=== PATIENT | female | born 1980 | race Caucasian/White ===

== ENCOUNTER 2017-12-06 20:06 | Inpatient (IN) | payer BC ==
[~2017-12-06] VITALS: Ht 167.6 cm; Wt 83.1 kg
[~2017-12-06 20:06] MED LIST: FERR325T51 PO; MTR600X PO; PRENTAB26 PO
[2017-12-06] MEDS ORDERED: KETOROLAC TROMETHAMINE 30 MG/ML VIAL IV STA (20:28)
[2017-12-06] MEDS ORDERED: OPTIRAY 320 IV PRN (20:45)
[2017-12-06 21:01] LABS: HEMATOCRIT 38.8 % (37-47); HEMOGLOBIN 13.2 g/dL (12.0-16.0); MEAN CELL VOLUME 88.8 fL (80-100); MEAN CORPUSCULAR HEMOGLOBIN 30.2 pg (25-34); MEAN PLATELET VOLUME 9.4 fL (7.4-10.4); PLATELET COUNT 242 K/uL (130-400); RED CELL DISTRIBUTION WIDTH SD 42.2 fL (36.4-46.3); WHITE BLOOD COUNT 8.03 K/uL (4.8-10.8)
[2017-12-06 21:18] LABS: CALCIUM 9.1 mg/dl (8.5-10.1); CREATININE 0.84 mg/dl (0.60-1.20); POTASSIUM 3.8 mmol/L (3.5-5.1)
--- NOTE | 2017-12-06 22:13 | DIAGNOSTIC IMAGING REPORT ---
CT ANGIOGRAM OF THE BRAIN COMBO; CT ANGIOGRAM OF THE NECK CLINICAL HISTORY: Headache. COMPARISON STUDY: No priors. TECHNIQUE: Unenhanced axial CT scan of the brain is performed. Subsequently, following the IV administration of 94 of Optiray 320, CT angiogram of the head and neck was performed from the aortic arch to the vertex. Images are reviewed in the axial, sagittal, and coronal planes. 3-D MIPS images are created and assessed. IV contrast was administered without complication. All measurements were calculated based on NASCET criteria. A dose lowering technique was utilized adhering to the principles of ALARA. CT DOSE: 1072.78 mGy.cm FINDINGS: Brain parenchyma: The brain parenchyma is normal in appearance. There is no hemorrhage, mass effect, or evidence of acute territorial ischemia by CT criteria. There is no evidence of enhancing mass lesion on the angiogram phase images. The ventricles, sulci, and cisterns are normal in configuration. Lane-white matter differentiation is preserved. No extra-axial fluid collection is seen. Thoracic aorta: Visualized portions of the thoracic aorta are normal in caliber. The aortic arch demonstrates standard 3-vessel anatomy. Right carotid arterial system: The right common carotid artery is widely patent, as are the right internal and external carotid arteries. Left carotid arterial system: The left common carotid artery is widely patent, as are the left internal and external carotid arteries. Vertebral arteries: The vertebral arteries are patent bilaterally and codominant. There is a focal dissection identified in the right vertebral artery in the neck at the level of C4-C5. This is best seen on axial image #126. Focal dissection is also identified in the mid to distal left vertebral artery in the neck at the level of C3-C4. This is best seen on axial image #142. Subclavian arteries: Widely patent bilaterally. Intracranial vasculature: There is origin of the left posterior cerebral artery. There is a large right posterior communicating artery. The internal carotid arteries are patent at the skull base, as are the anterior and middle cerebral arteries bilaterally. The vertebrobasilar system and posterior cerebral arteries are widely patent. The vertebral arteries are codominant. There is no aneurysm, high-grade stenosis, or focal vessel cut off seen throughout the intracranial circulation. Jugular veins: Widely patent bilaterally. Dural sinuses: Patent. Lung apices: Partially visualized upper lobe lung parenchyma appears clear. Soft tissues: The visualized pharyngeal soft tissues are normal in appearance noting angiographic phase technique. The oropharyngeal airway appears widely patent. The salivary and thyroid glands are normal in appearance. No cervical lymphadenopathy is seen. Skeletal structures: The calvarium appears intact. The cervical spine is within normal limits. Sinuses and mastoids: Trace mucosal thickening is seen in the maxillary antra. The remaining paranasal sinuses are clear. The mastoid air cells are well pneumatized. IMPRESSION: 1. There is no hemorrhage, mass effect, or evidence of acute territorial ischemia by CT criteria. 2. Unremarkable CT angiogram of the brain. 3. There are focal dissections identified within both vertebral arteries in the neck as above. The vessels remain patent. 4. The carotid arteries are widely patent bilaterally. Electronically signed by: Bud Fried M.D. 12/06/2017 10:12 PM Dictated Date/Time: 12/06/2017 10:00 PM
[2017-12-07 00:04] LABS: INR 0.9 (0.9-1.1); PTT PATIENT 28.9 SECONDS (21.0-31.0)
[2017-12-07] MEDS ORDERED: HEPARIN 25000 UNIT/500 ML D5W ONE (00:10)
[2017-12-07 00:50] VITALS: BP 149/96; PULSE 72; TEMP 36.7; O2SAT 96; Ht 167.6 cm; Wt 83.1 kg
[2017-12-07] MEDS ORDERED: MoRPHine SULFATE 4 MG/ML 1 ML CARP\\VIAL IV PRN (01:15)
[2017-12-07] MEDS ORDERED: TRAMADOL HCL 50 MG TAB PO PRN (01:15)
[2017-12-07] MEDS ORDERED: PROCHLORPERAZINE INJ 5 MG in SYRINGE 4 ML IV PRN (01:15)
[2017-12-07] MEDS ORDERED: LORAZEPAM 2 MG/ML 1 ML VIAL IV PRN (01:15)
[2017-12-07] MEDS ORDERED: HEPARIN 25,000 UNIT/500ML D5W 500 ML IV PRN (01:30)
[2017-12-07] MEDS ORDERED: HEPARIN IV BOLUS 6,000 UNIT in SYRINGE 0 ML IV ONE (01:30)
[2017-12-07 02:32] LABS: ALBUMIN 3.9 gm/dl (3.4-5.0); ALKALINE PHOSPHATASE 68 U/L (45-117); ALT/SGPT 27 U/L (12-78); AST/SGOT 20 U/L (15-37); TOTAL PROTEIN 8.2 gm/dl (6.4-8.2)
--- NOTE | 2017-12-07 02:50 | EMERGENCY ROOM VISIT NOTE ---
History Report prepared by Roel: Tu Khanna Under the Supervision of: Dr. Moreno Hogue D.O. First contact with patient: 20:21 Chief Complaint: HYPERTENSION Stated Complaint: NECK PAIN, HEADACHE, HPB History of Present Illness The patient is a 37 year old female who presents to the Emergency Room with complaints of constant neck pain and a headache beginning 3.5 hours ago. The patient states she developed left sided neck pain and then a headache. She reports her discomfort did not feel like muscle pain. The patient notes she went to [employer] [facility] and was told her blood pressure was high. She states her baseline blood pressure is low. The patient reports she has been having intermittent flu like symptoms and nausea for the past two weeks. She notes she tried Sudafed and Mucinex, but they have not helped. The patient denies smoking and taking daily medication. She notes she had an IUD placed and her menstrual period has been irregular. Source of History: patient Onset: 3.5 hours ago Position: head, neck (left sided) Quality: ache (head) Timing: constant Associated Symptoms: + nausea (intermittent for the past two weeks) Note: Associated symptoms: HTN, intermittent flu like symptoms for a week Denies: smoking Review of Systems See HPI for pertinent positives & negatives. A total of 10 systems reviewed and were otherwise negative. Past Medical & Surgical Medical Problems: (1) Uterine contractions at greater than 20 weeks of gestation (2) Uterine contractions at greater than 20 weeks of gestation (3) Vertebral artery dissection Family History Cancer Diabetes mellitus Heart disease Hypertension Social History Smoking Status: Never Smoker Smokeless Tobacco Use: No Alcohol Use: occasionally Marital Status: Housing Status: lives with family Occupation Status: employed Current/Historical Medications No Active Prescriptions or Reported Meds Allergies Coded Allergies: No Known Allergies (Unverified , 10/29/15) Physical Exam Vital Signs Date Time Temp Pulse Resp B/P (MAP) Pulse Ox O2 Delivery O2 Flow Rate FiO2 12/06/17 23:59 82 20 159/96 98 Room Air 12/06/17 21:42 72 20 132/90 98 Room Air 12/06/17 20:55 72 18 155/104 100 Room Air 12/06/17 20:08 36.5 83 16 179/107 99 Room Air Physical Exam CONSTITUTIONAL/VITAL SIGNS: Reviewed / noted above. GENERAL: Non-toxic in appearance. INTEGUMENTARY: Warm, dry, and [place]. HEAD: Normocephalic. EYES: without scleral icterus or trauma. ENT/OROPHARYNX: clear and moist. LYMPHADENOPATHY/NECK: Is supple without lymphadenopathy or meningismus. RESPIRATORY: Lungs clear and equal. CARDIOVASCULAR: Regular rate and rhythm. GI/ABDOMEN: Soft and nontender. No organomegaly or pulsatile mass. No rebound or guarding. Normal bowel sounds. EXTREMITIES: Warm and well perfused. BACK: No CVA tenderness. NEUROLOGICAL: Intact without focal deficits. PSYCHIATRIC: normal affect. MUSCULOSKELETAL: Normally developed with good muscle tone. Medical Decision & Procedures ER Provider Diagnostic Interpretation: CT results as stated below per my review and radiologist interpretation: CT ANGIOGRAM OF THE BRAIN COMBO; CT ANGIOGRAM OF THE NECK CLINICAL HISTORY: Headache. COMPARISON STUDY: No priors. TECHNIQUE: Unenhanced axial CT scan of the brain is performed. Subsequently, following the IV administration of 94 of Optiray 320, CT angiogram of the head and neck was performed from the aortic arch to the vertex. Images are reviewed in the axial, sagittal, and coronal planes. 3-D MIPS images are created and assessed. IV contrast was administered without complication. All measurements were calculated based on NASCET criteria. A dose lowering technique was utilized adhering to the principles of ALARA. CT DOSE: 1072.78 mGy.cm FINDINGS: Brain parenchyma: The brain parenchyma is normal in appearance. There is no hemorrhage, mass effect, or evidence of acute territorial ischemia by CT criteria. There is no evidence of enhancing mass lesion on the angiogram phase images. The ventricles, sulci, and cisterns are normal in configuration. Lane-white matter differentiation is preserved. No extra-axial fluid collection is seen. Thoracic aorta: Visualized portions of the thoracic aorta are normal in caliber. The aortic arch demonstrates standard 3-vessel anatomy. Right carotid arterial system: The right common carotid artery is widely patent, as are the right internal and external carotid arteries. Left carotid arterial system: The left common carotid artery is widely patent, as are the left internal and external carotid arteries. Vertebral arteries: The vertebral arteries are patent bilaterally and codominant. There is a focal dissection identified in the right vertebral artery in the neck at the level of C4-C5. This is best seen on axial image #126. Focal dissection is also identified in the mid to distal left vertebral artery in the neck at the level of C3-C4. This is best seen on axial image #142. Subclavian arteries: Widely patent bilaterally. Intracranial vasculature: There is origin of the left posterior cerebral artery. There is a large right posterior communicating artery. The internal carotid arteries are patent at the skull base, as are the anterior and middle cerebral arteries bilaterally. The vertebrobasilar system and posterior cerebral arteries are widely patent. The vertebral arteries are codominant. There is no aneurysm, high-grade stenosis, or focal vessel cut off seen throughout the intracranial circulation. Jugular veins: Widely patent bilaterally. Dural sinuses: Patent. Lung apices: Partially visualized upper lobe lung parenchyma appears clear. Soft tissues: The visualized pharyngeal soft tissues are normal in appearance noting angiographic phase technique. The oropharyngeal airway appears widely patent. The salivary and thyroid glands are normal in appearance. No cervical lymphadenopathy is seen. Skeletal structures: The calvarium appears intact. The cervical spine is within normal limits. Sinuses and mastoids: Trace mucosal thickening is seen in the maxillary antra. The remaining paranasal sinuses are clear. The mastoid air cells are well pneumatized. IMPRESSION: 1. There is no hemorrhage, mass effect, or evidence of acute territorial ischemia by CT criteria. 2. Unremarkable CT angiogram of the brain. 3. There are focal dissections identified within both vertebral arteries in the neck as above. The vessels remain patent. 4. The carotid arteries are widely patent bilaterally. Electronically signed by: Bud Fried M.D. 12/06/2017 10:12 PM Dictated Date/Time: 12/06/2017 10:00 PM Laboratory Results 12/06/17 20:45 12/06/17 20:45 Test 12/06/17 20:45 Red Blood Count 4.37 M/uL (4.2-5.4) Mean Corpuscular Volume 88.8 fL (80-100) Mean Corpuscular Hemoglobin 30.2 pg (25-34) Mean Corpuscular Hemoglobin Concent 34.0 g/dl (32-36) RDW Standard Deviation 42.2 fL (36.4-46.3) RDW Coefficient of Variation 13.0 % (11.5-14.5) Mean Platelet Volume 9.4 fL (7.4-10.4) Prothrombin Time 9.7 SECONDS (9.0-12.0) Prothromb Time International Ratio 0.9 (0.9-1.1) Activated Partial Thromboplast Time 28.9 SECONDS (21.0-31.0) Partial Thromboplastin Ratio 1.1 Anion Gap 4.0 mmol/L (3-11) Est Creatinine Clear Calc Drug Dose 100.4 ml/min Estimated GFR () 102.9 Estimated GFR (Non- 88.8 BUN/Creatinine Ratio 14.7 (10-20) Calcium Level 9.1 mg/dl (8.5-10.1) Magnesium Level 2.5 mg/dl (1.8-2.4) Total Bilirubin 0.8 mg/dl (0.2-1) Direct Bilirubin < 0.1 mg/dl (0-0.2) Aspartate Amino Transf (AST/SGOT) 20 U/L (15-37) Alanine Aminotransferase (ALT/SGPT) 27 U/L (12-78) Alkaline Phosphatase 68 U/L (45-117) Total Protein 8.2 gm/dl (6.4-8.2) Albumin 3.9 gm/dl (3.4-5.0) Thyroid Stimulating Hormone (TSH) 1.680 uIu/ml (0.300-4.500) Laboratory results as stated above per my review. Medications Administered Medications (Trade) Dose Ordered Sig/Chris Route Start Time Stop Time Status Last Admin Dose Admin Ketorolac Tromethamine (Toradol Inj) 30 mg NOW STAT IV 12/06/17 20:28 12/06/17 20:31 DC 12/06/17 20:56 30 MG ED Course 2020: Previous medical records were reviewed. The patient was evaluated in room B04B. A complete history and physical examination was performed. 2027: Ordered Ketorolac Tromethamine 30 mg IV 2330: I discussed the patient's case with Dr. Olsen, Neurology. He said admit the patient to medicine, put her on a Heparin drip overnight, and have her get an MRI of the brain. 4: On reevaluation, the patient is resting comfortably. I discussed the results and findings with the patient. She verbalized agreement of the treatment plan. The patient will be evaluated for further management and care. 2341: I discussed the patient's case with Dr. Little, [facility] [address] Hospitalist. The patient will be evaluated for further management and care. 2343: Ordered Heparin Sodium/Dextrose 1 ea Medical Decision Differential includes: Acute intracranial bleed, trauma, meningitis, encephalitis, increased intracranial pressure, mass or mass effect, facial or dental infection, temporal arteritis, CVA, TIA, acute hypertensive emergency, sinusitis, and carbon monoxide exposure. This is a 37-year-old female who presents to the ED with a chief complaint of a headache and hypertension. The patient states that her symptoms started around 5 PM tonight. She developed a posterior headache and some left-sided posterior neck pain. She states that the neck pain is becoming more generalized in the posterior neck and a headache is mostly in the posterior but became generalized as well. She states that she has had a head cold for about a month. She also recently got over a GI bug. She denies any chest pains, shortness of breath, abdominal pains. She does not have a fever. Physical exam was unremarkable. His no lymphadenopathy. No photophobia. No localized tenderness in the musculature of the posterior neck. CBC and PRP are normal. A CT scan angiogram reveals bilateral of the head and neck revealed bilateral vertebral artery dissections. I spoke with Dr. Olsen about this patient. He recommends the patient be admitted and placed on IV heparin and worked up additionally with MRI. The patient was reassessed. Her blood pressure did improve during her ED stay. She was given IV Toradol for pain and IV fluids. The patient was reassessed and told the results. She is comfortable. Her blood pressure was around 145 systolic. She will be seen by the hospitalist for further inpatient evaluation and care. She was ordered IV heparin. Consults Time Called: [phone] Consulting Physician: Dr. Olsen, Neurology Returned Call: [phone] I discussed the patient's case with Dr. Olsen, Neurology. He said admit the patient to medicine, put her on a Heparin drip overnight, and have her get an MRI of the brain. Additional Consults: Time Called: [phone] Consulted Physician: Cm Hector Hospitalist Returned Call: [phone] Additional Comments: I discussed the patient's case with Cm Hector Hospitalist. The patient will be evaluated for further management and care. Impression Primary Impression: Vertebral artery dissection Scribe Attestation The scribe's documentation has been prepared under my direction and personally reviewed by me in its entirety. I confirm that the note above accurately reflects all work, treatment, procedures, and medical decision making performed by me. Departure Information Dispostion Being Evaluated By Hospitalist Prescriptions No Active Prescriptions or Reported Meds Referrals Adán Chaves D.O. (PCP) Patient Instructions My [facility]
[2017-12-07] MEDS ORDERED: GADAVIST IV PRN (03:00)
[2017-12-07] MEDS ORDERED: NSS + 20MEQ KCL 1000ML 1,000 ML IV ONE (03:30)
[2017-12-07] MEDS ORDERED: NITROGLYCERIN 0.4 MG SL PER TAB CHARGE SL PRN (03:30)
[2017-12-07] MEDS ORDERED: ACETAMINOPHEN 325 MG TAB PO PRN (03:30)
[2017-12-07] MEDS ORDERED: KETOROLAC TROMETHAMINE 15 MG/ML VIAL ONE (03:46)
[2017-12-07 03:47] VITALS: BP 143/87; PULSE 67; TEMP 36.9; O2SAT 96
[2017-12-07] MEDS ORDERED: KETOROLAC TROMETHAMINE 15 MG/ML VIAL IV. STA (03:48)
[2017-12-07 04:00] VITALS: O2SAT 96
--- NOTE | 2017-12-07 04:29 | HISTORY & PHYSICAL EXAMINATION ---
DATE OF ADMISSION: 12/07/2017 PRIMARY CARE PHYSICIAN: Adán Chaves DO. CHIEF COMPLAINT: Headache. HISTORY OF PRESENT ILLNESS: History obtained from patient and records. No significant medical history. Patient was driving yesterday when she noted achy left neck, left headache symptoms. Her handwriting was a little sloppy yesterday. No chest pain, no shortness of breath. Vision in both eyes were little blurry as per patient. Patient does not recall trauma. Some of pain relief w/ massaging sore neck spot. Patient seen at urgent care center. Emergency Room evaluation recommended. CT angio of the brain did not show any hemorrhage, mass effect. Focal dissections identified in both vertebral arteries. IV heparin started in the ER as per Neurology recommendations. MEDICAL HISTORY: As above. SURGERIES: Dental surgery, D&C, denies any other gynecological procedures. HOME MEDICATIONS: None. ALLERGIES: No known drug allergies. FAMILY HISTORY: Diabetes, heart disease, thyroid problems. PERSONAL AND SOCIAL HISTORY: Nonsmoker, no chronic intake of alcoholic beverages. She is a schoolteacher. REVIEW OF SYSTEMS: As per HPI. All 10 systems reviewed. All other ROS negative. PHYSICAL EXAMINATION: VITAL SIGNS: Blood pressure noted to be 130/90, pulse rate 72, RR 20, temperature 36.7, sats 98 on room air. GENERAL: Noted to be pleasant, no respiratory distress. SKIN: Normal color. Warm. HEENT: [place] palpebral conjunctiva. Eye balls somewhat protuberant (chronic) Moist buccal mucosa. NECK: Supple. No tenderness. CHEST: CTA. No tenderness. HEART: Regular rate and rhythm, no murmur. ABDOMEN: Soft, nontender. EXTREMITIES: No edema, no tenderness. No gross deformities NEUROLOGIC: Coherent. No gross focality. LABORATORY DATA: Hemoglobin was noted to be 13.2, hematocrit 38, white cell count 8.8, platelets 242. Sodium noted to be 135, potassium 3.8, chloride 102, CO2 29, BUN 12, creatinine 0.8, glucose noted to be 97. CTA as above. ASSESSMENT: Cervical (vertrebral) artery dissection PLAN: PCU IV heparin, MRI of brain as per Neurology recommendations. Further management as per Neurology. (ER provider already in touch with Dr. Olsen.) DVT prophylaxis, Heparin. Full code. MTDD
[2017-12-07 06:19] LABS: BASO % 0.3 %; BASO ABS # 0.03 K/uL (0-0.2); EOS % 3.1 %; EOS ABS # 0.29 K/uL (0-0.5); HEMATOCRIT 35.8 % (37-47); HEMOGLOBIN 12.1 g/dL (12.0-16.0); IG# 0.02 K/uL (0.00-0.02); LYMPH % 30.4 %; LYMPH ABS # 2.85 K/uL (1.2-3.4); MEAN CELL VOLUME 88.8 fL (80-100); MEAN CORPUSCULAR HGB CONC 33.8 g/dl (32-36); MEAN PLATELET VOLUME 9.4 fL (7.4-10.4); MONO % 7.5 %; NEUT % 58.5 %; NEUT ABS # 5.49 K/uL (1.4-6.5); PLATELET COUNT 228 K/uL (130-400); RED CELL DISTRIBUTION WIDTH SD 41.8 fL (36.4-46.3); WHITE BLOOD COUNT 9.38 K/uL (4.8-10.8)
[2017-12-07 06:20] LABS: PTT PATIENT 41.3 SECONDS (21.0-31.0)
[2017-12-07] MEDS ORDERED: HEPARIN IV BOLUS 3,000 UNIT in SYRINGE 0 ML IV ONE (06:45)
[2017-12-07 06:50] LABS: CALCIUM 8.6 mg/dl (8.5-10.1); CREATININE 0.58 mg/dl (0.60-1.20)
--- NOTE | 2017-12-07 07:19 | DIAGNOSTIC IMAGING REPORT ---
Brain MRI WITH AND WITHOUT CONTRAST HISTORY: headache TECHNIQUE: Multiplanar multisequence MRI of the brain was performed both before and after the intravenous administration of contrast. COMPARISON STUDY: None. FINDINGS: There are no areas of restricted diffusion to suggest acute infarction. The midline structures are intact. The paranasal sinuses are clear. The mastoid air cells are clear. The ventricles and sulci are within normal limits for age. There is no mass, hematoma, midline shift. The major vascular flow-voids at the skull base are well maintained. Postcontrast sequences show no areas of abnormal enhancement. There are few punctate foci of T2 hyperintensity within the subcortical white matter of the supratentorial brain. IMPRESSION: No acute intracranial abnormality. A few punctate nonspecific T2 hyperintense foci within the subcortical white matter of the supratentorial brain. This is nonspecific could be due to migraines. Electronically signed by: Pardeep Hall M.D. 12/07/2017 7:17 AM Dictated Date/Time: 12/07/2017 7:09 AM
[2017-12-07 07:42] VITALS: BP 143/89; PULSE 69; TEMP 36.9; O2SAT 97
--- NOTE | 2017-12-07 09:08 | Neurology Consultation ---
Neurology Consultation Date of Consultation: Dec 07, 2017. Attending Physician: Fallon Salazar M.D. Primary Care Physician: Adán Chaves D.O. Reason for Consultation: Vertebral artery dissection History of Present Illness Source: patient, hospital records The patient is a 37-year-old female who presented with a complaint of neck pain and headache that began suddenly while driving her car yesterday. The neck pain was primarily left-sided and did not radiate into the limbs. [facility] and found to have an elevated blood pressure. She presented to the hospital for further assessment. She had been complaining of a recent mild flulike illness for the proceeding one to 2 weeks with perhaps some minimal coughing. No vomiting or retching. The patient reports that her neck pain and headache have resolved. She denies experiencing any vision loss, diplopia, change in speech, weakness, or sensory loss in the limbs. This patient 's past medical history is generally unremarkable. No known history of connective tissue disease, fibromuscular dysplasia, previous arterial dissection , or aneurysm. She has not had any chiropractic manipulation. She denies any significant head or neck trauma in the previous [address] of the head completed at the time of presentation was unremarkable. No evidence of hemorrhage. CT angiography of the head and neck was also completed. I reviewed the images as well as the radiologist's interpretation of this test. There is a focal dissection of the right vertebral artery at the C4-5 level. There is a focal dissection of the mid left vertebral artery at the C3-4 level. No other vascular abnormalities appreciated. I discussed this patient's case with both the emergency department attending as well as the admitting physician last night. Her blood pressure is modestly elevated but seems to be improving. A heparin drip has been started. A brain MRI has been completed as well. I reviewed the images as well as radiologist's interpretation of this test. No significant abnormalities. No evidence of acute or subacute infarct. No evidence of hemorrhage. Family History Patient denies a family history of arterial dissection, fibromuscular dysplasia , or connective tissue disease in any immediate family member. Social History Smoking Status: Never smoker Smokeless Tobacco Use: No Marital Status: Housing Status: lives with family Occupation Status: employed Allergies Coded Allergies: No Known Allergies (Unverified , 10/29/15) Current Inpatient Medications Current Inpatient Medications Medications (Trade) Dose Ordered Sig/Chris Route Start Time Stop Time Status Last Admin Dose Admin Ioversol (Optiray 320) 100 ml UD PRN IV 12/06/17 20:45 12/10/17 20:44 Prochlorperazine Edisylate 5 mg/ Syringe 5 ml @ 5 mls/min Q6H PRN IV 12/07/17 01:15 01/06/18 01:14 Tramadol HCl (Ultram Tab) 25 mg Q6H PRN PO 12/07/17 01:15 01/06/18 01:14 Morphine Sulfate (MoRPHine SULFATE INJ) 4 mg Q3H PRN IV 12/07/17 01:15 12/21/17 01:14 Lorazepam (Ativan Inj) 0.5 mg Q4H PRN IV 12/07/17 01:15 01/06/18 01:14 Heparin Sodium/ Dextrose 500 ml @ 28 mls/hr [id number] PRN IV 12/07/17 01:30 01/06/18 01:29 12/07/17 07:15 28 MLS/HR Acetaminophen (Tylenol Tab) 650 mg Q4H PRN PO 12/07/17 03:30 01/06/18 03:29 Nitroglycerin (Nitrostat Tab) 0.4 mg UD PRN SL 12/07/17 03:30 01/06/18 03:29 Potassium Chloride/Sodium Chloride 1,000 ml @ 75 mls/hr [id number] ONCE IV 12/07/17 03:30 12/07/17 16:49 12/07/17 03:55 75 MLS/HR Gadobutrol (Gadavist) 8.4 mmol UD PRN IV 12/07/17 03:00 12/11/17 02:59 Review of Systems Constitutional: No fever or chills Eyes: No vision loss or diplopia ENT: No vertigo or hearing loss Cardiovascular: No chest pain or palpitations Respiratory: No coughing wheezing or shortness of breath Gastrointestinal: No nausea or vomiting or diarrhea Neurological: As per history of present illness A full 10 point review of systems was obtained from this patient with pertinent positives and negatives as described in the history and otherwise listed above. All remaining systems reviewed and are negative. Physical Exam Vital Signs (Past 24 Hrs): Date Time Temp Pulse Resp B/P (MAP) Pulse Ox O2 Delivery O2 Flow Rate FiO2 12/07/17 07:42 36.9 69 18 143/89 (107) 97 Room Air 12/07/17 04:00 96 Room Air 12/07/17 03:47 36.9 67 17 143/87 (105) 96 Room Air 12/07/17 00:50 36.7 72 22 149/96 96 Room Air 12/07/17 00:37 73 20 145/101 98 Room Air 12/07/17 00:02 80 12/06/17 23:59 82 20 159/96 98 Room Air 12/06/17 21:42 72 20 132/90 98 Room Air 12/06/17 20:55 72 18 155/104 100 Room Air 12/06/17 20:08 36.5 83 16 179/107 99 Room Air The patient is a well-developed, well-nourished middle-aged female. She is sitting up comfortably in bed. The patient is alert and fully oriented. Recent and remote memory intact. Attention and concentration normal. Patient exhibits a normal spontaneous speech pattern as well as an age-appropriate fund of knowledge. Visual champagne full to confrontation. Visual acuity normal. Pupils equal round reactive to light and accommodation. Eye movements normal. Facial sensation intact. There is no facial droop or facial weakness. Hearing intact bilaterally. Palate elevates to midline. Shoulder shrug strength intact bilaterally. Tongue protrudes to midline. Sensation intact to light touch, temperature, vibration, and proprioception in all 4 limbs. Deep tendon reflexes are intact and symmetrical for the arms and legs bilaterally. Plantar responses downgoing bilaterally. There is no dysdiadochokinesia or dysmetria with finger to nose or heel to paredes bilaterally. Ophthalmoscopic examination reveals normal- appearing optic nerves and posterior elements. No papilledema or hemorrhages. Carotid pulses normal to auscultation bilaterally. Gait and station normal. Muscle strength and tone normal for the arms and legs bilaterally. No atrophy. No abnormal movements observed. Laboratory Results Past 24 Hours: 12/07/17 06:00 Red Blood Count 4.03, Mean Corpuscular Volume 88.8, Mean Corpuscular Hemoglobin 30.0, Mean Corpuscular Hemoglobin Concent 33.8, Mean Platelet Volume 9.4, Neutrophils (%) (Auto) 58.5, Lymphocytes (%) (Auto) 30.4, Monocytes (%) (Auto) 7.5, Eosinophils (%) (Auto) 3.1, Basophils (%) (Auto) 0.3, Neutrophils # (Auto) 5.49, Lymphocytes # (Auto) 2.85, Monocytes # (Auto) 0.70, Eosinophils # (Auto) 0.29, Basophils # (Auto) 0.03 12/07/17 06:00 Test 12/06/17 20:45 12/07/17 00:40 12/07/17 06:00 Prothrombin Time 9.7 SECONDS (9.0-12.0) Prothromb Time International Ratio 0.9 (0.9-1.1) Magnesium Level 2.5 mg/dl (1.8-2.4) Total Bilirubin 0.8 mg/dl (0.2-1) Direct Bilirubin < 0.1 mg/dl (0-0.2) Aspartate Amino Transf (AST/SGOT) 20 U/L (15-37) Alanine Aminotransferase (ALT/SGPT) 27 U/L (12-78) Alkaline Phosphatase 68 U/L (45-117) Total Protein 8.2 gm/dl (6.4-8.2) Albumin 3.9 gm/dl (3.4-5.0) Thyroid Stimulating Hormone (TSH) 1.680 uIu/ml (0.300-4.500) Urine Color YELLOW Urine Appearance CLOUDY (CLEAR) Urine pH 7.0 (4.5-7.5) Urine Specific [place] > 1.045 (1.000-1.030) Urine Protein NEG (NEG) Urine Glucose (UA) NEG (NEG) Urine Ketones NEG (NEG) Urine Occult Blood NEG (NEG) Urine Nitrite NEG (NEG) Urine Bilirubin NEG (NEG) Urine Urobilinogen NEG (NEG) Urine Leukocyte Esterase NEG (NEG) Urine WBC (Auto) 1-5 /hpf (0-5) Urine RBC (Auto) 0-4 /hpf (0-4) Urine Hyaline Casts (Auto) 1-5 /lpf (0-5) Urine Epithelial Cells (Auto) 20-30 /lpf (0-5) Urine Bacteria (Auto) 1+ (NEG) Urine Test NEG (NEG) White Blood Count 9.38 K/uL (4.8-10.8) Red Blood Count 4.03 M/uL (4.2-5.4) Hemoglobin 12.1 g/dL (12.0-16.0) Hematocrit 35.8 % (37-47) Mean Corpuscular Volume 88.8 fL (80-100) Mean Corpuscular Hemoglobin 30.0 pg (25-34) Mean Corpuscular Hemoglobin Concent 33.8 g/dl (32-36) Platelet Count 228 K/uL (130-400) Mean Platelet Volume 9.4 fL (7.4-10.4) Neutrophils (%) (Auto) 58.5 % Lymphocytes (%) (Auto) 30.4 % Monocytes (%) (Auto) 7.5 % Eosinophils (%) (Auto) 3.1 % Basophils (%) (Auto) 0.3 % Neutrophils # (Auto) 5.49 K/uL (1.4-6.5) Lymphocytes # (Auto) 2.85 K/uL (1.2-3.4) Monocytes # (Auto) 0.70 K/uL (0.11-0.59) Eosinophils # (Auto) 0.29 K/uL (0-0.5) Basophils # (Auto) 0.03 K/uL (0-0.2) RDW Standard Deviation 41.8 fL (36.4-46.3) RDW Coefficient of Variation 13.0 % (11.5-14.5) Immature Granulocyte % (Auto) 0.2 % Immature Granulocyte # (Auto) 0.02 K/uL (0.00-0.02) Activated Partial Thromboplast Time 41.3 SECONDS (21.0-31.0) Partial Thromboplastin Ratio 1.6 Anion Gap 5.0 mmol/L (3-11) Est Creatinine Clear Calc Drug Dose 144.2 ml/min Estimated GFR () 136.5 Estimated GFR (Non- 117.8 BUN/Creatinine Ratio 15.4 (10-20) Calcium Level 8.6 mg/dl (8.5-10.1) Impression Bilateral, focal, vertebral artery dissections presenting with neck pain and headache, now resolved. Patient did not present with TIA or strokelike symptoms. She has an intact neurological examination, and normal brain MRI. Etiology of the vertebral artery dissections is undetermined. Patient did complain of a flulike illness which occurred 1-2 weeks prior to onset of her neck pain and headache. Inflammation from this illness may have been a contributing factor as well as associated mild coughing. No known history of recent trauma or chiropractic manipulation. No known history of connective tissue disease, fibromuscular dysplasia, or other potential associated medical factor. Plan Guidelines suggest using either antiplatelet medication or anticoagulants to treat either carotid or vertebral artery dissection. Given that this patient has bilateral vertebral artery dissections and does not have any evidence of hemorrhage I would recommend treatment with an anticoagulant for the next 3-6 months. Either warfarin or a newer oral anticoagulant would be appropriate. An outpatient consultation with a neurovascular specialist either at [facility] or [facility] would also be appropriate. A follow-up CT angiogram or MRA will likely be needed in 3-6 months to assess for interval healing. This patient should also follow up with her primary care physician for monitoring and possible treatment of hypertension. She may follow-up with me locally for monitoring of her neurological status. Case discussed with Dr. Salazar this morning. No further recommendations at this time.
[2017-12-07] MEDS ORDERED: KETOROLAC TROMETHAMINE 10 MG TAB PO PRN (11:00)
--- NOTE | 2017-12-07 11:11 | Discharge Instructions ---
Discharge Instructions Date of Service Dec 07, 2017. Admission Reason for Admission: Vertebral Artery Dissection Discharge Discharge Diagnosis / Problem: VERTEBRAL ARTERY DISSECTION Discharge Goals Goal(s): Improve function, Diagnostic testing, Therapeutic intervention Activity Recommendations Activity Limitations: resume your previous activity . Instructions / Follow-Up Instructions / Follow-Up HOSPITAL FOLLOW UP : 12/10/2017 2:00 PM John Salgado III, MD [facility] YOU ARE ASKED TO TAKE BLOOD THINNERS /THROMBOLYTICS-Eliquis 5 MG TWICE DAILY FOR 3 MONTHS ASPIRIN 81 MG DAILY ( TAKE WITH FULL STOMACH ) STOP TAKING Eliquis /APIXABAN AFTER 3 MONTHS -THEN CONTINUE TO TAKE ASPIRIN LOW DOSE INDEFINITELY PLEASE NOTIFY YOUR FAMILY PHYSICIAN IN ANY EVENT OF DARK STOOL( SIGN OF BLEEDING IN STOMACH ) , EXCESSIVE NOSE BLEED NEED TO STOP TAKING BOTH ASPIRIN AND ELIQUIS WITH ANY EVIDENCE OF BLEEDING NEUROLOGY FOLLOW UP WITH DR GARCIA IN 2-3 WEEKS , PLEASE CALL OFFICE FOR APPOINTMENT NEUROVASCULAR FOLLOW UP IN [facility] -PLEASE HAVE A REFERRAL THROUGH DR SALGADO'S OFFICE REPEAT CT ANGIOGRAM OF NECK /OR MRA OF BRAIN IN 3-6 MONTHS TO ASSESS FOR INTERVAL HEALING Current Hospital Diet Patient's current hospital diet: AHA Diet (Heart Healthy) Discharge Diet Recommended Diet: Regular Diet Pending Studies Studies pending at discharge: no Medical Emergencies . Who to Call and When: Medical Emergencies: If at any time you feel your situation is an emergency, please call 911 immediately. . Non-Emergent Contact Non-Emergency issues call your: Primary Care Provider . . "Provider Documentation" section prepared by Fallon Slaazar. . VTE Core Measure Inpt VTE Proph given/why not?: Other Anticoagulation (IV HEPARIN )
[2017-12-07 11:24] VITALS: BP 127/86; PULSE 80; TEMP 36.9; O2SAT 98
[2017-12-07] MEDS ORDERED: ELQ25 PO ×2 (12:20→12:25)
[2017-12-07] MEDS ORDERED: ASPEC81 PO (12:51)
[2017-12-07 13:18] VITALS: BP 127/86; PULSE 80; TEMP 36.9; O2SAT 98
[2017-12-07] MEDS ORDERED: APIXABAN 2.5 MG TAB PO SCH (13:20)
--- NOTE | 2017-12-07 13:43 | Discharge Summary ---
Discharge Summary Date of Service Dec 07, 2017. Discharge Summary Admission Date: Dec 07, 2017 at 00:00 Discharge Date: Dec 07, 2017 Discharge Disposition: Home Principal Diagnosis: VERTEBRAL ARTERY DISSECTION Procedures: CTA OF BRAIN /NECK : 1. There is no hemorrhage, mass effect, or evidence of acute territorial ischemia by CT criteria. 2. Unremarkable CT angiogram of the brain. 3. There are focal dissections identified within both vertebral arteries in the neck . The vessels remain patent. 4. The carotid arteries are widely patent bilaterally. MRA OF BRAIN : IMPRESSION: No acute intracranial abnormality. A few punctate nonspecific T2 hyperintense foci within the subcortical white matter of the supratentorial brain. This is nonspecific could be due to migraines. Consultations: NEUROLOGY DR OLSEN Medication Reconciliation New Medications: Apixaban (Eliquis) 2.5 Mg Tab 5 MG PO BID for 30 Days, #120 TAB 3 Refills Aspirin (Aspirin EC Low Dose) 81 Mg Ectab 1 TAB PO DAILY for 30 Days, #30 TABS 9 Refills Referrals At Discharge Follow up Referrals: Neurologist Referral - Within 2 Weeks with Gaurang Olsen M.D. Physician Referral - 12/10/17 with John Galicia III, M.D. Admission Information HPI (per Admitting provider): DATE OF ADMISSION: 12/07/2017 PRIMARY CARE PHYSICIAN: Adán Chaves DO. CHIEF COMPLAINT: Headache. HISTORY OF PRESENT ILLNESS: History obtained from patient records. The patient seen on 12/07/2017. No significant medical history. The patient was driving yesterday when she noted achy left neck, left headache symptoms. The patient is a right-handed female. Her handwriting was a little floppy. No chest pain, no shortness of breath, vision in both eyes were little blurry as per patient. The patient does not recall trauma. Some of relieve pain with patient's massaging her. The patient seen at urgent care center, referred to the Emergency Room. A CT angio of the brain did not show any hemorrhage, mass effect. Focal dissections identified in both vertebral arteries. IV heparin started in the ER as per neurology recommendations. ER provider discussed with Dr. Olsen. MEDICAL HISTORY: As above. SURGERIES: Dental surgery, D&C, denies any other gynecological procedures. HOME MEDICATIONS: None. ALLERGIES: No known drug allergies. FAMILY HISTORY: Diabetes, heart disease, thyroid problems. PERSONAL AND SOCIAL HISTORY: Nonsmoker, no chronic intake of alcoholic beverages. She is a schoolteacher. REVIEW OF SYSTEMS: As per HPI. All 10 systems reviewed. All other ROS negative. Physical Exam (per Admitting): PHYSICAL EXAMINATION: VITAL SIGNS: Blood pressure noted to be 130/90, pulse rate 72, RR 20, temperature 36.7, sats 98 on room air. GENERAL: Noted to be pleasant, no respiratory distress. SKIN: Normal color. Warm. HEENT: [place] palpebral conjunctiva. Moist mucosa. NECK: Supple. No tenderness. CHEST: Clear to auscultate. No tenderness. HEART: Regular rate and rhythm, no murmur. ABDOMEN: Soft, nontender. EXTREMITIES: No edema, no tenderness. NEUROLOGIC: Coherent. No gross focality. Hospital Course headache has resolved, had left sided neck pain earlier this morning 04/07 , resolved after taking PO Toradol feels fine , eager to be discharged home IV heparin D/tri , started on PO Eliquis evaluated by Neurology Dr Olsen this morning stable to be discharged home today PHYSICAL EXAM : GEN : young female , no sign of distress HEENT ; sclera non icteric, PERRLA /EOMI LUNGS ; clear to auscultate , no wheeze or rales HEART : regular S1/S2 ABDOMEN : soft, non tender, no organomegaly , bowel sound active EXTREMITIES : no rash or deformities NEURO: AAO x3, no focal neurological deficit A/P : SPONTANEOUS VERTEBRAL ARTERY DISSECTION : -presented with sudden onset of neck pain while driving no hx of trauma or whiplash injury CTA of neck shows bilateral focal vertebral artery dissection: There is a focal dissection identified in the right vertebral artery in the neck at the level of C4-C5. Focal dissection is also identified in the mid to distal left vertebral artery in the neck at the level of C3-C4. MRA of brain -no evidence of CVA , finding as above pt started empirically with IV heparin headache as resolved, neck pain has improved with NSAID's only appreciate input from Neurology -recommends transition to Oral anticoagulants - either Coumadin or newer Direct oral anticoagulations ( if pt has insurance coverage ) as pt had no prior hx /no evidence of fibromuscular dysplasia suggest short term anticoagulation for 3-6 months only repeat CTA of neck /MRA of brain in 3-6 months to assess improvement recommend out pt Neurovascular follow up at [facility] care - pt transitioned to PO Eliquis 5 mg BID for 3 months only ( has 100 % insurance coverage ) added low dose aspirin pt is asked to take over the counter -Tylenol /Motrin ( to be taken with food ) as needed for headache /neck pain pt is discharged home today scheduled to have Hospital follow up with Dr Galicia on 12/10/17 ( Family Physician ) Follow up with Neurology Dr Olsen in 3-4 weeks pt is asked to have referral to Vascular surgery at [facility] for future follow up Total time spent on discharge = 45 mins This includes examination of the patient, discharge planning, medication reconciliation, and communication with other providers. Discharge Instructions Discharge Instructions Date of Service Dec 07, 2017. Admission Reason for Admission: Vertebral Artery Dissection Discharge Discharge Diagnosis / Problem: VERTEBRAL ARTERY DISSECTION Discharge Goals Goal(s): Improve function, Diagnostic testing, Therapeutic intervention Activity Recommendations Activity Limitations: resume your previous activity . Instructions / Follow-Up Instructions / Follow-Up HOSPITAL FOLLOW UP : 12/10/2017 2:00 PM John Galicia III, MD [facility] YOU ARE ASKED TO TAKE BLOOD THINNERS /THROMBOLYTICS-Eliquis 5 MG TWICE DAILY FOR 3 MONTHS ASPIRIN 81 MG DAILY ( TAKE WITH FULL STOMACH ) STOP TAKING Eliquis /APIXABAN AFTER 3 MONTHS -THEN CONTINUE TO TAKE ASPIRIN LOW DOSE INDEFINITELY PLEASE NOTIFY YOUR FAMILY PHYSICIAN IN ANY EVENT OF DARK STOOL( SIGN OF BLEEDING IN STOMACH ) , EXCESSIVE NOSE BLEED NEED TO STOP TAKING BOTH ASPIRIN AND ELIQUIS WITH ANY EVIDENCE OF BLEEDING NEUROLOGY FOLLOW UP WITH DR OLSEN IN 2-3 WEEKS , PLEASE CALL OFFICE FOR APPOINTMENT NEUROVASCULAR FOLLOW UP IN [facility] -PLEASE HAVE A REFERRAL THROUGH DR GALICIA'S OFFICE REPEAT CT ANGIOGRAM OF NECK /OR MRA OF BRAIN IN 3-6 MONTHS TO ASSESS FOR INTERVAL HEALING Current Hospital Diet Patient's current hospital diet: AHA Diet (Heart Healthy) Discharge Diet Recommended Diet: Regular Diet Pending Studies Studies pending at discharge: no Medical Emergencies . Who to Call and When: Medical Emergencies: If at any time you feel your situation is an emergency, please call 911 immediately. . Non-Emergent Contact Non-Emergency issues call your: Primary Care Provider . . "Provider Documentation" section prepared by Fallon Salazar. . VTE Core Measure Inpt VTE Proph given/why not?: Other Anticoagulation (IV HEPARIN ) Additional Copies To Gaurang Olsen M.D. Piatt, John E., III, M.D.
== END 2017-12-07 13:47 | disposition home or self-care (01) | DRG 301 ==
LOC: C.EDB 20:07 → C.2T 12-07 → ENRESERV 12-07 00:19
PROVIDERS: ADMIT Internal Medicine; ATTEND Hospitalist
DX: I77.74 Dissection of vertebral artery (principal)